=== PATIENT | female | born 1965 | race Caucasian/White ===

== ENCOUNTER 2016-03-06 17:40 | Emergency (ER) | payer MEDICAID, OTHER ==
[2016-03-06 17:58] VITALS: BP 157/94
--- NOTE | 2016-03-06 18:26 | UC ---
Respiratory Complaint HPI - HPI Summary HPI Summary: Patient is 50yo female with a history of asthma presents after 4-5 days of cough with yellow sputum. Patient states her father in the [place] is currently being treated for PNA and she has visited there multiple times during the course of his illness. She was also treated in the ICU last year for asthma exacerbation associated associated with a URI. Patient also has a nodule on her L lung which has been present and stable for approximately [address] scan 2 years prior and is currently unaware if size has changed. Patient is on albuterol and symbicort, both of which she feels she has needed more of over the last few days. Denies SOB but states she is more fatigued than usual. Patient also has had a "stomach bug" with nausea/vomiting , JUAN, body aches and chills 2 days prior to cough and congestion. This has since dissipated and denies any current abdominal symptoms. Patient is allergic to penicillins. Visits her PCP regularly and has appt this week. - History of Current Complaint Chief Complaint: UCGeneralIllness Stated Complaint: COUGH,FATIGUE Hx Obtained From: Patient Hx Last Menstrual Period: Never had a period ?: No Onset/Duration: Sudden Onset Timing: Constant Severity Initially: Moderate Severity Currently: Moderate Pain Intensity: 1 Pain Scale Used: 0-10 Numeric Character: Cough: Productive - yellow sputum Alleviating Factors: Bronchodilator - and symbicort Associated Signs And Symptoms: Positive: Fever - none currently, Chills - none currently, Wheezing, URI, Nasal Congestion - Risk Factors Pulmonary Embolism Risk Factors: Smoking - previous Cardiac Risk Factors: Family History Pseudomonas Risk Factors: Chronic Lung Disease - asthma Tuberculosis Risk Factors: Smoking - previous - Allergies/Home Medications Allergies/Adverse Reactions: Allergies Allergy/AdvReac Type Severity Reaction Status Date / Time Aspirin Allergy See Comment Verified 07/22/14 07:52 Penicillins Allergy Shortness Verified 07/22/14 07:52 of Breath Home Medications: Home Medications Mometasone NASAL (NF) [Nasonex (NF)] 03/06/16 [History] Tylenol Extended Release Tablets 650 mg PO 03/06/16 [History] PMH/Surg Hx/FS Hx/Imm Hx Previously Healthy: Yes Endocrine History Of: Denies: Diabetes, Thyroid Disease Cardiovascular History Of: Reports: Hypertension - not on meds right now Denies: Cardiac Disorders Respiratory History Of: Reports: Asthma, Bronchitis - PNEUMONIA A COUPLE TIMES, Pneumonia Denies: COPD GI/ History Of: Denies: Ulcer, Renal Disease - Surgical History Surgical History: Yes Surgery Procedure, Year, and Place: hysterectomy - Family History Known Family History: Positive: Cardiac Disease Family History: COPD - Social History Occupation: Employed Full-time Lives: Alone Alcohol Use: Rare Substance Use Type: None Smoking Status (MU): Former Smoker Type: Cigarettes Amount Used/How Often: 2 PPD Length of Time of Smoking/Using Tobacco: 8-10 years Have You Smoked in the Last Year: No When Did the Patient Quit Smoking/Using Tobacco: 20 years ago Household Exposure Type: Cigarettes - Immunization History Most Recent Influenza Vaccination: season Most Recent Tetanus Shot: unk Most Recent Pneumonia Vaccination: this year Review of Systems Constitutional: Fever, Chills, Fatigue Skin: Negative ENT: Negative Respiratory: Cough - with sputum production Cardiovascular: Negative Gastrointestinal: Negative, Vomiting - 2 days ago Motor: Negative Musculoskeletal: Negative Neurological: Negative All Other Systems Reviewed And Are Negative: Yes Physical Exam Triage Information Reviewed: Yes Appearance: Well-Appearing, No Pain Distress, Well-Nourished Vital Signs: Initial Vital Signs Temp 99 F 03/06/16 17:47 Pulse 73 03/06/16 17:47 Resp 18 03/06/16 17:47 BP 157/94 03/06/16 17:47 Pulse Ox 99 03/06/16 17:47 Vital Signs Reviewed: Yes Eye Exam: Normal Eyes: Positive: Conjunctiva Clear ENT Exam: Normal ENT: Positive: Normal ENT inspection, Hearing grossly normal, Pharynx normal Dental Exam: Normal Neck exam: Normal Neck: Positive: Supple, Nontender Respiratory Exam: Normal Respiratory: Positive: No respiratory distress, No accessory muscle use, Rhonchi - right lower lung, Expiration Cardiovascular Exam: Normal Cardiovascular: Positive: RRR, No Murmur, Pulses Normal Musculoskeletal Exam: Normal Musculoskeletal: Positive: Strength Intact, ROM Intact Neurological Exam: Normal Psychological Exam: Normal Psychological: Positive: Normal Response To Family Skin Exam: Normal UC Diagnostic Evaluation - Laboratory O2 Sat by Pulse Oximetry: 99 - Radiology Xray Interpretation: No Acute Changes Radiology Interpretation Completed By: Radiologist Re-Evaluation - Re-Evaluation First Eval Change: Unchanged - D/t patients symptoms of GI - flu swab performed Respiratory Course/Dx - Course Course Of Treatment: Physical exam performed. History includes ICU stay last year, sick contact around current patient being treated for PNA, asthma exacerbation, PNA or bronchitis on average once per year and stable lung nodule on L lung. Chest xray ordered d/t significant lung history and risk factors. Chest Xray read as no acute disease. Per risk factors and history, after discussing with attending, decided to treat with prednisone, zpack and albuterol nebulizer. First dose treatment given in . Flu swab negative. - Differential Dx/Diagnosis Differential Diagnosis/HQI/PQRI: Asthma, Bronchitis, Other - PNA Provider Diagnoses: URI - Physician Notification/Consults Instructed by Provider To: Have Pt Call For Appt. - follow up with your PCP as planned this week Discharge - Discharge Plan Condition: Stable Disposition: HOME Prescriptions: Albuterol 2.5MG/3ML (0.083%)* [Ventolin 2.5 MG/3 ML NEB.VERENA*] 2.5 mg INH Q4H PRN #30 neb.verena PRN Reason: Cough Azithromyxin MAURY (NF) [Z-Maury (Zithromax) 250 mg tabs #6] 2 tab PO .TODAY, THEN 1 DAILY #6 tab predniSONE TAB* [Deltasone TAB*] 10 mg PO DAILY #17 tab Patient Education Materials: Upper Respiratory Infection (GEN), Azithromycin ( By mouth) Referrals: Queta Dasilva MD [Primary Care Provider] - Additional Instructions: If you develop severe or worsening symptoms, come back to or go to emergency room. You have been diagnosed with an upper respiratory infection. As discussed, d/t your current risk factors, ICU stay and sick family contacts - will treat empirically with antibiotics. Also prescribed to you is prednisone and albuterol nebulizer. Return if fever develops.
--- NOTE | 2016-03-06 19:01 | RAD ---
INDICATION: Pneumonia COMPARISON: 03/09/2015 TECHNIQUE: PA and lateral dual-energy views were obtained. FINDINGS: Bones/Soft Tissues: There are no acute bony findings. Cardiomediastinal: The cardiomediastinal silhouette is normal. Lungs: There are no infiltrates. Pleura: There are no pleural effusions. Other: None IMPRESSION: NO ACTIVE DISEASE.
[2016-03-06] MEDS ORDERED: Azithromycin TAB* 250 MG PO ONE (19:30)
== END 2016-03-06 19:45 | disposition home or self-care (01) ==
LOC: UCEAST 17:40
DX: J06.9 Acute upper respiratory infection, unspecified (principal); Z88.6 Allergy status to analgesic agent; Z88.0 Allergy status to penicillin; Z87.891 Personal history of nicotine dependence
CPT/HCPCS: 71020; 87502; 99212; A9270-GY; G0463

== ENCOUNTER 2016-07-05 21:14 | Emergency (ER) | payer OTHER ==
[2016-07-05 21:34] VITALS: BP 144/96
[2016-07-05] MEDS ORDERED: predniSONE TAB* 20 MG PO ONE (22:18)
[2016-07-05] MEDS ORDERED: Azithromycin TAB* 250 MG PO ONE (22:18)
--- NOTE | 2016-07-05 22:18 | UC ---
Respiratory Complaint HPI - HPI Summary HPI Summary: WORSENING COUGH, CONGESTION, ST AND EAR PAIN OVER THE PAST WEEK. FEELS WHEEZY AND TIGHT. HAS HISTORY OF ASTHMA. NO FEVER BUT FELT "HOT" ON THE WAY HERE. - History of Current Complaint Chief Complaint: UCRespiratory Stated Complaint: CHEST CONGESTION Time Seen by Provider: 07/05/16 22:01 Hx Obtained From: Patient Hx Last Menstrual Period: Never had a period Onset/Duration: Gradual Onset, Lasting Days, Still Present Timing: Constant Severity Initially: Moderate Severity Currently: Moderate Pain Intensity: 0 Pain Scale Used: 0-10 Numeric Character: Cough: Nonproductive Aggravating Factors: Nothing Alleviating Factors: Nothing Associated Signs And Symptoms: Positive: Wheezing, URI, Nasal Congestion - Allergies/Home Medications Allergies/Adverse Reactions: Allergies Allergy/AdvReac Type Severity Reaction Status Date / Time Aspirin Allergy See Comment Verified 07/05/16 21:34 Penicillins Allergy Shortness Verified 07/05/16 21:34 of Breath Home Medications: Home Medications Albuterol Sulfate [Proventil Hfa] 2 puff INH QID PRN 07/05/16 [History Confirmed 07/05/16] PMH/Surg Hx/FS Hx/Imm Hx Endocrine History Of: Denies: Diabetes, Thyroid Disease Cardiovascular History Of: Reports: Hypertension - not on meds right now Denies: Cardiac Disorders Respiratory History Of: Reports: Asthma, Bronchitis - PNEUMONIA A COUPLE TIMES, Pneumonia Denies: COPD GI/ History Of: Denies: Ulcer, Renal Disease Cancer History Of: Denies: Breast Cancer - Surgical History Surgical History: Yes Surgery Procedure, Year, and Place: hysterectomy - Family History Known Family History: Positive: Cardiac Disease Family History: COPD - Social History Alcohol Use: None Substance Use Type: None Smoking Status (MU): Former Smoker Type: Cigarettes Amount Used/How Often: 2 PPD Length of Time of Smoking/Using Tobacco: 8-10 years Have You Smoked in the Last Year: No When Did the Patient Quit Smoking/Using Tobacco: 20 years ago Household Exposure Type: Cigarettes - Immunization History Most Recent Influenza Vaccination: 2014/2015 season Most Recent Tetanus Shot: unk Most Recent Pneumonia Vaccination: this year Review of Systems Constitutional: Negative ENT: Sore Throat, Ear Ache, Nasal Discharge Respiratory: Cough Cardiovascular: Negative Gastrointestinal: Negative All Other Systems Reviewed And Are Negative: Yes Physical Exam Triage Information Reviewed: Yes Appearance: Well-Appearing, No Pain Distress, Well-Nourished Vital Signs: Initial Vital Signs Temp 98.1 F 07/05/16 21:31 Pulse 74 07/05/16 21:31 Resp 16 07/05/16 21:31 BP 144/96 07/05/16 21:31 Pulse Ox 97 07/05/16 21:31 Vital Signs Reviewed: Yes Eyes: Positive: Conjunctiva Clear ENT: Positive: Hearing grossly normal, Pharynx normal, TMs normal. Negative: Tonsillar swelling, Tonsillar exudate Neck: Positive: Supple, Nontender, No Lymphadenopathy Respiratory: Positive: No respiratory distress, No accessory muscle use, Decreased breath sounds, Wheezing - DIFFUSELY Cardiovascular Exam: Normal Abdomen Description: Positive: Soft Musculoskeletal: Positive: No Edema Neurological: Positive: Alert Psychological: Positive: Age Appropriate Behavior Skin: Negative: rashes UC Diagnostic Evaluation - Laboratory O2 Sat by Pulse Oximetry: 97 Respiratory Course/Dx - Differential Dx/Diagnosis Provider Diagnoses: 1. ASTHMA EXACERBATION. 2. BRONCHITIS Discharge - Discharge Plan Condition: Stable Disposition: HOME Prescriptions: Azithromycin TAB* [Zithromax TAB (Z-ANNIE) 250 mg #6 tabs] 250 mg PO DAILY #4 tab predniSONE TAB* [Deltasone TAB*] 50 mg PO DAILY #4 tab Patient Education Materials: Asthma (ED), Acute Bronchitis (ED) Referrals: Queta Dasilva MD [Primary Care Provider] - If Needed Additional Instructions: CONTINUE TO USE YOUR INHALERS PRESCRIBED.
== END 2016-07-05 22:32 | disposition home or self-care (01) ==
LOC: UCEAST 21:14
DX: J45.901 Unspecified asthma with (acute) exacerbation (principal); I10 Essential (primary) hypertension; Z90.710 Acquired absence of both cervix and uterus; Z88.6 Allergy status to analgesic agent; Z88.0 Allergy status to penicillin; Z87.891 Personal history of nicotine dependence
CPT/HCPCS: 99212; A9270-GY; G0463; J7512

== ENCOUNTER 2016-11-20 23:55 | Emergency (ER) | payer OTHER ==
[2016-11-21] MEDS ORDERED: methylPREDNISolone 125 MG* 2 ML VIAL IV ONE (00:30)
[2016-11-21] MEDS ORDERED: NS 0.9% 1000 ML* 1,000 ML IV ONE (00:30)
[2016-11-21 00:56] LABS: Hematocrit 43 % (35-47); Hemoglobin 14.5 g/dl (12.0-16.0); Mean Corpuscular HGB Conc 34 g/dl (31-36); Mean Corpuscular Hemoglobin 30 pg (27-31); Mean Corpuscular Volume 89 fL (80-97); Mean Platelet Volume 10 um3 (7.4-10.4); Red Blood Count 4.78 10^6/ul (4.0-5.4); Red Cell Distribution Width 13 % (10.5-15); White Blood Count 7.9 10^3/ul (3.5-10.8)
[2016-11-21] MEDS: Albuterol/Ipratropium NEB.SOL* Albuterol 2.5 MG/Ipratropium 0.5 MG 3 ML INH SCH ×3 (00:59→01:24)
[2016-11-21 01:11] LABS: Albumin 4.1 g/dL (3.2-5.2); BUN/Creatinine Ratio 19.8 (8-20); C Reactive Protein 13.85 mg/L (< 5.00); Calcium 9.5 mg/dL (8.6-10.3); EGFR African American 70.6 (>60); EGFR Non-African American 54.9 (>60); Potassium 3.9 mmol/L (3.5-5.0); Total Bilirubin 0.3 mg/dL (0.2-1.0); Total Protein 7.1 g/dL (6.4-8.9)
[2016-11-21 02:25] LABS: Urine Bilirubin Negative (Negative); Urine Glucose 1+(50 mg/dL) (Negative); Urine Nitrite Negative (Negative)
[2016-11-21 02:42] VITALS: BP 156/80
--- NOTE | 2016-11-21 07:58 | RAD ---
HISTORY: Shortness of breath COMPARISONS: March 06, 2016 VIEWS: 4: Frontal dual-energy and lateral views of the chest. FINDINGS: CARDIOMEDIASTINAL SILHOUETTE: The cardiomediastinal silhouette is normal. DAVID: The david are normal. PLEURA: The costophrenic angles are sharp. No pleural abnormalities are noted. LUNG PARENCHYMA: The lungs are clear. ABDOMEN: The upper abdomen is clear. There is no subphrenic gas. BONES AND SOFT TISSUES: No bone or soft tissue abnormalities are noted. OTHER: None. IMPRESSION: NO ACTIVE CARDIOPULMONARY DISEASE.
--- NOTE | 2016-11-22 12:40 | ED ---
Berta Prince Alfonso, scribed for Calvin Solis MD on 11/21/16 at 0104 . Shortness of Breath - HPI Summary HPI Summary: This patient is a 51 year old F presenting to [facility] accompanied by with a chief complaint of SOB since 2 hours ago. She states it is an asthma attack. The patient rates the pain 0/10 in severity. Symptoms alleviated by nothing. Patient reports productive cough, CP (burning), and wheezing. Patient denies fever, and chills. - History of Current Complaint Chief Complaint: EDShortnessOfBreath Time Seen by Provider: 11/21/16 00:16 Hx Obtained From: Patient Onset/Duration: Sudden Onset, Lasting Hours - 2, Still Present Timing: Constant Alleviating Factors: Nothing Associated Signs & Symptoms: Cough (Productive), Wheezing, Chest Pain w/Cough - Allergy/Home Medications Allergies/Adverse Reactions: Allergies Allergy/AdvReac Type Severity Reaction Status Date / Time Aspirin Allergy See Comment Verified 11/21/16 00:02 Penicillins Allergy Shortness Verified 11/21/16 00:02 of Breath PMH/Surg Hx/FS Hx/Imm Hx Endocrine/Hematology History: Denies: Hx Diabetes, Hx Systemic Lupus Erythematosus, Hx Thyroid Disease Cardiovascular History: Reports: Hx Hypertension - not on meds right now Respiratory History: Reports: Hx Asthma, Hx Chronic Bronchitis, Hx Pneumonia, Other Respiratory Problems/Disorders - NODULE ON L.LUNG Denies: Hx Chronic Obstructive Pulmonary Disease (COPD) GI History: Denies: Hx Ulcer History: Denies: Hx Renal Disease Musculoskeletal History: Denies: Hx Rheumatoid Arthritis - Surgical History Surgery Procedure, Year, and Place: hysterectomy Infectious Disease History: No Infectious Disease History: Denies: Hx Clostridium Difficile, Hx Hepatitis, Hx Human Immunodeficiency Virus (HIV), Hx of Known/Suspected MRSA, Hx Shingles, Hx Tuberculosis, History Other Infectious Disease, Traveled Outside the [place] in Last 30 Days - Family History Known Family History: Positive: Cardiac Disease Family History: COPD - Social History Alcohol Use: None Substance Use Type: Reports: None Smoking Status (MU): Former Smoker Type: Cigarettes Amount Used/How Often: 2 PPD Length of Time of Smoking/Using Tobacco: 8-10 years Have You Smoked in the Last Year: No Review of Systems Negative: Fever, Chills Positive: Chest Pain - burning Positive: Shortness Of Breath, Cough, Other - Wheezing All Other Systems Reviewed And Are Negative: Yes Physical Exam - Summary Physical Exam Summary: VITAL SIGNS: Reviewed. GENERAL: Patient is a well-developed and nourished female who is lying comfortable in the stretcher. Patient is not in any acute respiratory distress. HEAD AND FACE: No signs of trauma. No ecchymosis, hematomas or skull depressions. No sinus tenderness. EYES: PERRLA, EOMI x 2, No injected conjunctiva, no nystagmus. EARS: Hearing grossly intact. Ear canals and tympanic membranes are within normal limits. MOUTH: Oropharynx within normal limits. NECK: Supple, trachea is midline, no adenopathy, no JVD, no carotid bruit, no c- spine tenderness, neck with full ROM. CHEST: Symmetric, no tenderness at palpation LUNGS: Bilateral wheezing and decreased breath sounds bilaterally. CVS: Regular rate and rhythm, S1 and S2 present, no murmurs or gallops appreciated. ABDOMEN: Soft, non-tender. No signs of distention. No rebound no guarding, and no masses palpated. Bowel sounds are normal. EXTREMITIES: FROM in all major joints, no edema, no cyanosis or clubbing. NEURO: Alert and oriented x 3. No acute neurological deficits. Speech is normal and follows commands. SKIN: Dry and warm Triage Information Reviewed: Yes Vital Signs On Initial Exam: Initial Vitals Temp Pulse Resp BP Pulse Ox 97.4 F 90 20 166/89 97 11/20/16 23:59 11/20/16 23:59 11/20/16 23:59 11/20/16 23:59 11/20/16 23:59 Vital Signs Reviewed: Yes - [place] Coma Scale Coma Scale Total: 15 Diagnostics - Vital Signs Vital Signs Temp Pulse Resp BP Pulse Ox 11/20/16 23:59 97.4 F 90 20 166/89 97 - Laboratory Lab Results: Lab Results 11/21/16 Range/Units 00:45 WBC 7.9 (3.5-10.8) 10^3/ul RBC 4.78 (4.0-5.4) 10^6/ul Hgb 14.5 (12.0-16.0) g/dl Hct 43 (35-47) % MCV 89 (80-97) fL MCH 30 (27-31) pg MCHC 34 (31-36) g/dl RDW 13 (10.5-15) % Plt Count 224 (150-450) 10^3/ul MPV 10 (7.4-10.4) um3 Neut % (Auto) 70.5 (38-83) % Lymph % (Auto) 18.7 L (25-47) % Traverse % (Auto) 6.0 (1-9) % Eos % (Auto) 4.1 (0-6) % Baso % (Auto) 0.7 (0-2) % Absolute Neuts (auto) 5.6 (1.5-7.7) 10^3/ul Absolute Lymphs (auto) 1.5 (1.0-4.8) 10^3/ul Absolute Monos (auto) 0.5 (0-0.8) 10^3/ul Absolute Eos (auto) 0.3 (0-0.6) 10^3/ul Absolute Basos (auto) 0.1 (0-0.2) 10^3/ul Absolute Nucleated RBC 0 10^3/ul Nucleated RBC % 0.1 Result Diagrams: 11/21/16 00:45 11/21/16 00:45 Lab Statement: Any lab studies that have been ordered have been reviewed, and results considered in the medical decision making process. - Radiology CXR Radiology Interpretation Completed By: ED Physician - negative - EKG 0034 Cardiac Rate: NL - BPM 78 EKG Rhythm: Sinus Rhythm EKG Interpretation: RBBB. No ST elevation. Course/Dx - Course Assessment/Plan: This patient is a 51 year old F presenting to [facility] accompanied by with a chief complaint of SOB since 2 hours ago. She states it is an asthma attack. The patient rates the pain 0/10 in severity. Symptoms alleviated by nothing. Patient reports productive cough, CP (burning), and wheezing. Patient denies fever, and chills. An EKG reveals NSR and RBBB. CXR is negative. Test results with no significant abnormalities except for glucose of 116 and creatinine of 1.06. Urinalysis is negative. In the ED course the patient was given IV fluids, duonebs, and solumedrol. After the medications were given, the patients symptoms have subsided. The patient is saturating at 98% at room air. Therefore, the patient will be discharge to home with PCP follow up. The patient is agreeable with this plan. The patient is hemodynamically stable and alert and oriented x3. - Diagnoses Provider Diagnoses: Asthma exacerbation Discharge - Discharge Plan Condition: Stable Disposition: HOME Prescriptions: predniSONE TAB* [Deltasone TAB*] 40 mg PO DAILY #8 tab Patient Education Materials: Asthma (ED) Referrals: Queta Dasilva MD [Primary Care Provider] - 3 Days Additional Instructions: RETURN TO THE EMERGENCY DEPARTMENT FOR CHANGING OR WORSENING SYMPTOMS. The documentation as recorded by the Berta verdin Alfonso accurately reflects the service I personally performed and the decisions made by Will ryan Walter, MD.
== END 2016-11-21 02:41 | disposition home or self-care (01) ==
LOC: ED 23:55
DX: R05 Cough (principal); R07.9 Chest pain, unspecified; R06.2 Wheezing; R06.02 Shortness of breath; Z87.891 Personal history of nicotine dependence; J45.901 Unspecified asthma with (acute) exacerbation
CPT/HCPCS: 36415; 71020; 80053; 81003; 83605; 85025; 86140; 93005; 96374; 99284; A9270-GY; J2930

== ENCOUNTER 2017-01-17 15:10 | Emergency (ER) | payer OTHER ==
[2017-01-17] MEDS ORDERED: Albuterol/Ipratropium NEB.SOL* Albuterol 2.5 MG/Ipratropium 0.5 MG 3 ML INH ONE ×2 (18:53→19:39)
[2017-01-17] MEDS ORDERED: Albuterol/Ipratropium NEB.SOL* Albuterol 2.5 MG/Ipratropium 0.5 MG 3 ML ONE (18:54)
[2017-01-17] MEDS ORDERED: methylPREDNISolone 125 MG* 2 ML VIAL IV ONE (19:39)
--- NOTE | 2017-01-17 20:10 | RAD ---
INDICATION: Short of breath COMPARISON: November 21, 2016 TECHNIQUE: An AP portable view obtained at 1956 hours is submitted. FINDINGS: Bones/Soft Tissues: There are no acute bony findings. Cardiomediastinal: The cardiomediastinal silhouette is normal. Lungs: There are no infiltrates. Pleura: There are no pleural effusions. Other: None IMPRESSION: NO ACTIVE DISEASE.
[2017-01-17 20:38] LABS: Hematocrit 43 % (35-47); Hemoglobin 14.4 g/dl (12.0-16.0); Mean Corpuscular HGB Conc 34 g/dl (31-36); Mean Corpuscular Hemoglobin 30 pg (27-31); Mean Corpuscular Volume 89 fL (80-97); Mean Platelet Volume 10 um3 (7.4-10.4); Red Cell Distribution Width 13 % (10.5-15); White Blood Count 13.3 10^3/ul (3.5-10.8)
[2017-01-17 20:51] LABS: Albumin 4.3 g/dL (3.2-5.2); BUN/Creatinine Ratio 12.9 (8-20); Calcium 9.4 mg/dL (8.6-10.3); EGFR Non-African American 70.8 (>60); Potassium 3.4 mmol/L (3.5-5.0); Total Bilirubin 0.4 mg/dL (0.2-1.0); Total Protein 7.3 g/dL (6.4-8.9)
[2017-01-17] MEDS ORDERED: Azithromycin TAB* 250 MG PO ONE (21:06)
[2017-01-17 21:29] VITALS: BP 150/86
--- NOTE | 2017-01-17 21:32 | ED ---
Татьяна Prince Gabriel, scribed for Aleksandr Machado on 01/17/17 at 1934 . Respiratory - HPI Summary HPI Summary: This patient is a 51 year old F presenting to [facility] with a chief complaint of asthma exacerbation since earlier today. Patient reports nonproductive cough. Patient denies fever, abd pain, and edema. Pt states she had a head cold for the last 5 days that has recently moved into her chest causing asthma flare-ups , she also says her nebulizer at home isnt helping. - History of Current Complaint Chief Complaint: EDShortnessOfBreath Stated Complaint: CHEST CONGESTION,SOB Time Seen by Provider: 01/17/17 19:19 Hx Obtained From: Patient Onset/Duration: Still Present Timing: Constant Pain Intensity: 0 Character: Wheezing, Cough (Nonproductive) Alleviating Factor(s): Nothing Associated Signs and Symptoms: Negative - fever, abd pain, and edema, Wheezing - Allergy/Home Medications Allergies/Adverse Reactions: Allergies Allergy/AdvReac Type Severity Reaction Status Date / Time Aspirin Allergy See Comment Verified 11/21/16 00:02 Penicillins Allergy Shortness Verified 11/21/16 00:02 of Breath PMH/Surg Hx/FS Hx/Imm Hx Previously Healthy: No Endocrine/Hematology History: Denies: Hx Diabetes, Hx Systemic Lupus Erythematosus, Hx Thyroid Disease Cardiovascular History: Reports: Hx Hypertension - not on meds right now Respiratory History: Reports: Hx Asthma, Hx Chronic Bronchitis, Hx Pneumonia, Other Respiratory Problems/Disorders - NODULE ON L.LUNG Denies: Hx Chronic Obstructive Pulmonary Disease (COPD) GI History: Denies: Hx Ulcer History: Denies: Hx Renal Disease Musculoskeletal History: Denies: Hx Rheumatoid Arthritis - Surgical History Surgery Procedure, Year, and Place: hysterectomy Infectious Disease History: No Infectious Disease History: Denies: Hx Clostridium Difficile, Hx Hepatitis, Hx Human Immunodeficiency Virus (HIV), Hx of Known/Suspected MRSA, Hx Shingles, Hx Tuberculosis, History Other Infectious Disease, Traveled Outside the [place] in Last 30 Days - Family History Known Family History: Positive: Cardiac Disease Family History: COPD - Social History Alcohol Use: None Hx Substance Use: No Substance Use Type: Reports: None Hx Tobacco Use: No Smoking Status (MU): Former Smoker Type: Cigarettes Amount Used/How Often: 2 PPD Length of Time of Smoking/Using Tobacco: 8-10 years Have You Smoked in the Last Year: No Review of Systems Negative: Fever Respiratory: Other - asthma exacerbation Positive: Cough Negative: Abdominal Pain Negative: Edema All Other Systems Reviewed And Are Negative: Yes Physical Exam - Summary Physical Exam Summary: Appearance: Well appearing, no pain distress Skin: warm, dry, reflects adequate perfusion Head/face: normal Eyes: EOMI, NASIMA ENT: normal Neck: supple, non-tender Respiratory: bilateral wheezing present. Cardiovascular: RRR, pulses symmetrical Abdomen: non-tender, soft Bowel: present Musculoskeletal: normal, strength/ROM intact Neuro: normal, sensory motor intact, A&Ox3 Triage Information Reviewed: Yes Vital Signs On Initial Exam: Initial Vitals Temp Pulse Resp BP Pulse Ox 97.4 F 111 16 163/95 95 01/17/17 15:17 01/17/17 15:17 01/17/17 15:17 01/17/17 15:17 01/17/17 15:17 Vital Signs Reviewed: Yes - [place] Coma Scale Coma Scale Total: 15 Diagnostics - Vital Signs Vital Signs Temp Pulse Resp BP Pulse Ox 01/17/17 15:17 97.4 F 111 16 163/95 95 - Laboratory Lab Results: Lab Results 01/17/17 01/17/17 01/17/17 Range/Units 20:06 20:06 20:06 WBC 13.3 H (3.5-10.8) 10^3/ul RBC 4.80 (4.0-5.4) 10^6/ul Hgb 14.4 (12.0-16.0) g/dl Hct 43 (35-47) % MCV 89 (80-97) fL MCH 30 (27-31) pg MCHC 34 (31-36) g/dl RDW 13 (10.5-15) % Plt Count 289 (150-450) 10^3/ul MPV 10 (7.4-10.4) um3 Neut % (Auto) 75.8 (38-83) % Lymph % (Auto) 17.1 L (25-47) % Parker % (Auto) 5.8 (1-9) % Eos % (Auto) 0.8 (0-6) % Baso % (Auto) 0.5 (0-2) % Absolute Neuts (auto) 10.1 H (1.5-7.7) 10^3/ul Absolute Lymphs (auto) 2.3 (1.0-4.8) 10^3/ul Absolute Monos (auto) 0.8 (0-0.8) 10^3/ul Absolute Eos (auto) 0.1 (0-0.6) 10^3/ul Absolute Basos (auto) 0.1 (0-0.2) 10^3/ul Absolute Nucleated RBC 0.01 10^3/ul Nucleated RBC % 0.1 INR (Anticoag Therapy) 0.98 (0.89-1.11) APTT 28.2 (26.0-36.3) seconds Sodium (133-145) mmol/L Potassium (3.5-5.0) mmol/L Chloride (101-111) mmol/L Carbon Dioxide (22-32) mmol/L Anion Gap (2-11) mmol/L BUN (6-24) mg/dL Creatinine (0.51-0.95) mg/dL Est GFR ( Amer) (>60) Est GFR (Non-Af Amer) (>60) BUN/Creatinine Ratio (8-20) Glucose (70-100) mg/dL Lactic Acid (0.5-2.0) mmol/L Calcium (8.6-10.3) mg/dL Magnesium (1.9-2.7) mg/dL Total Bilirubin (0.2-1.0) mg/dL AST (13-39) U/L ALT (7-52) U/L Alkaline Phosphatase (34-104) U/L Troponin I (<0.04) ng/mL B-Natriuretic Peptide 36 ( - 100) pg/mL Total Protein (6.4-8.9) g/dL Albumin (3.2-5.2) g/dL Globulin (2-4) g/dL Albumin/Globulin Ratio (1-3) 01/17/17 01/17/17 Range/Units 20:06 20:06 WBC (3.5-10.8) 10^3/ul RBC (4.0-5.4) 10^6/ul Hgb (12.0-16.0) g/dl Hct (35-47) % MCV (80-97) fL MCH (27-31) pg MCHC (31-36) g/dl RDW (10.5-15) % Plt Count (150-450) 10^3/ul MPV (7.4-10.4) um3 Neut % (Auto) (38-83) % Lymph % (Auto) (25-47) % Parker % (Auto) (1-9) % Eos % (Auto) (0-6) % Baso % (Auto) (0-2) % Absolute Neuts (auto) (1.5-7.7) 10^3/ul Absolute Lymphs (auto) (1.0-4.8) 10^3/ul Absolute Monos (auto) (0-0.8) 10^3/ul Absolute Eos (auto) (0-0.6) 10^3/ul Absolute Basos (auto) (0-0.2) 10^3/ul Absolute Nucleated RBC 10^3/ul Nucleated RBC % INR (Anticoag Therapy) (0.89-1.11) APTT (26.0-36.3) seconds Sodium 138 (133-145) mmol/L Potassium 3.4 L (3.5-5.0) mmol/L Chloride 105 (101-111) mmol/L Carbon Dioxide 24 (22-32) mmol/L Anion Gap 9 (2-11) mmol/L BUN 11 (6-24) mg/dL Creatinine 0.85 (0.51-0.95) mg/dL Est GFR ( Amer) 91.0 (>60) Est GFR (Non-Af Amer) 70.8 (>60) BUN/Creatinine Ratio 12.9 (8-20) Glucose 96 (70-100) mg/dL Lactic Acid 2.2 H* (0.5-2.0) mmol/L Calcium 9.4 (8.6-10.3) mg/dL Magnesium 2.0 (1.9-2.7) mg/dL Total Bilirubin 0.40 (0.2-1.0) mg/dL AST 26 (13-39) U/L ALT 52 (7-52) U/L Alkaline Phosphatase 62 (34-104) U/L Troponin I 0.00 (<0.04) ng/mL B-Natriuretic Peptide ( - 100) pg/mL Total Protein 7.3 (6.4-8.9) g/dL Albumin 4.3 (3.2-5.2) g/dL Globulin 3.0 (2-4) g/dL Albumin/Globulin Ratio 1.4 (1-3) Result Diagrams: 01/17/17 20:06 01/17/17 20:06 Lab Statement: Any lab studies that have been ordered have been reviewed, and results considered in the medical decision making process. - Radiology CXR Radiology Interpretation Completed By: Radiologist - NO ACTIVE DISEASE. ED physician has reviewed this radiology report and agrees Disposition - Course Assessment/Plan: This patient came in with SOB. Blood was drawn with no significant abnormalities. CXR reveals, per radiologist, NO ACTIVE DISEASE. In the ED course the patient was given Albuterol breathing treatment and Azithromycin and is feeling better. Patient will be discharged with prescription for Albuterol and Methylprednisolone and follow up from Dr. Dasilva. The patient is agreeable with this plan. - Differential Dx - Cardiopulmonary Differential Diagnoses - Cardiopulmonary: Acute Dyspnea, Asthma, Bronchitis, CHF , Exacerbation Of COPD, Myocardial Infarction, Pneumothorax - Diagnoses Provider Diagnoses: Exacerbation of asthma, Bronchitis Discharge - Discharge Plan Condition: Stable Disposition: HOME Prescriptions: Albuterol HFA INHALER* [Ventolin HFA Inhaler*] 2 puff INH Q6H PRN #1 mdi MDD 4 PRN Reason: Sob/Wheezing Methylprednisolone [Medrol Dosepak 4 MG*] 0 mg PO .SEE ANNIE INSTRUCTION #1 tab Patient Education Materials: Albuterol (By breathing), Methylprednisolone (By mouth), Bronchiolitis (ED), Asthma (ED) Referrals: Queta Dasilva MD [Primary Care Provider] - 3 Days Additional Instructions: RETURN TO THE EMERGENCY DEPARTMENT FOR CHANGING OR WORSENING SYMPTOMS. The documentation as recorded by the Татьяна verdin Gabriel accurately reflects the service I personally performed and the decisions made by Carter ryan Emmanuel.
== END 2017-01-17 21:28 | disposition home or self-care (01) ==
LOC: ED 15:10
DX: J45.901 Unspecified asthma with (acute) exacerbation (principal); R00.0 Tachycardia, unspecified; I10 Essential (primary) hypertension; Z90.710 Acquired absence of both cervix and uterus; Z88.6 Allergy status to analgesic agent; Z88.0 Allergy status to penicillin; Z87.891 Personal history of nicotine dependence
CPT/HCPCS: 36415; 71010; 80053; 83605; 83735; 83880; 84484; 85025; 85610; 85730; 93005; 94640; 96374; 99285; A9270-GY; J2930

== ENCOUNTER 2017-06-07 14:20 | Emergency (ER) | payer OTHER ==
[2017-06-07 14:37] VITALS: BP 138/89
--- NOTE | 2017-06-07 14:58 | UC ---
Respiratory Complaint HPI - HPI Summary HPI Summary: 52 y/o female presents to the urgent care c/o Pt c/o SOB and chest congestion, states R sided that started this morning. Pt states hx asthma, worried about bronchitis. - History of Current Complaint Chief Complaint: UCGeneralIllness Stated Complaint: CHEST CONGESTION Time Seen by Provider: 06/07/17 14:51 Hx Obtained From: Patient Hx Last Menstrual Period: Never had a period Pain Intensity: 1 - Allergies/Home Medications Allergies/Adverse Reactions: Allergies Allergy/AdvReac Type Severity Reaction Status Date / Time aspirin Allergy Shortness Verified 06/07/17 14:27 of Breath Penicillins Allergy Shortness Verified 06/07/17 14:27 of Breath PMH/Surg Hx/FS Hx/Imm Hx - Surgical History Surgical History: Yes Surgery Procedure, Year, and Place: hysterectomy - Family History Known Family History: Positive: Cardiac Disease Family History: COPD - Social History Alcohol Use: None Substance Use Type: None Smoking Status (MU): Former Smoker Type: Cigarettes Amount Used/How Often: 2 PPD Length of Time of Smoking/Using Tobacco: 8-10 years Have You Smoked in the Last Year: No When Did the Patient Quit Smoking/Using Tobacco: 20 years ago Household Exposure Type: Cigarettes - Immunization History Most Recent Influenza Vaccination: 2014/2015 season Most Recent Tetanus Shot: unk Most Recent Pneumonia Vaccination: this year Physical Exam - Summary Physical Exam Summary: Vital Signs Reviewed: Yes General: well developed, well nourished male sitting in the examining table w/o any apparent distress Eyes: Positive: Conjunctiva Clear - PERRLA, EOMI, fundi grossly normal ENT: Positive: Normal ENT inspection, Hearing grossly normal, Pharynx normal, Nasal congestion - edematous and erythematous nasal mucosa, Nasal drainage - yellowish drainage, TMs normal. Negative: Tonsillar swelling, Tonsillar exudate Neck: Positive: Supple, Nontender, No Lymphadenopathy Respiratory: no orthopnea or dyspnea. Able to speak in full sentences, no retractions or accessory muscle use, no tripod position, stridor, or head bobbing.Positive breaths souds bilaterally, mild scattered wheezing in the Rt upper posterior lung , no rhonchi, no crackles or rales. Cardiovascular: Positive: RRR, No Murmur, Pulses Normal, Brisk Capillary Refill Abdomen Description: Positive: Nontender, No Organomegaly, Soft. Negative: CVA Tenderness (R), CVA Tenderness (L) Bowel Sounds: Positive: Present Musculoskeletal Exam: Normal Musculoskeletal: Positive: Strength Intact, ROM Intact, No Edema Neurological Exam: Normal Psychological Exam: Normal Skin Exam: Normal Triage Information Reviewed: Yes Vital Signs: Initial Vital Signs Temp 97.7 F 06/07/17 14:29 Pulse 76 06/07/17 14:29 Resp 16 06/07/17 14:29 BP 138/89 06/07/17 14:29 Pulse Ox 97 06/07/17 14:29 Diagnostic Evaluation - Laboratory O2 Sat by Pulse Oximetry: 97 Respiratory Course/Dx - Differential Dx/Diagnosis Differential Diagnosis/HQI/PQRI: Asthma, Bronchitis, Influenza, Lower Resp Infection, Sinusitis, Other - pneumonia Provider Diagnoses: 1- Acute asthma exacerbation due to bronchitis Discharge - Discharge Plan Condition: Stable Disposition: HOME Prescriptions: Albuterol HFA INHALER* [Ventolin HFA Inhaler*] 2 puff INH Q6H PRN #1 mdi MDD 4 PRN Reason: Sob/Wheezing Albuterol/Ipratropium NEB.VERENA* [Duoneb (Albuterol 2.5 MG/Ipratropium 0.5 MG)] 1 neb INH Q6H PRN #1 maury PRN Reason: Wheezing Azithromyxin MAURY (NF) [Z-Maury (Zithromax) 250 mg tabs #6] 2 tab PO .TODAY, THEN 1 DAILY #6 tab Budesonide/Formote 160/4.5(NF) [Symbicort 160/4.5 (NF)] 1 puff INH BID #1 mdi predniSONE TAB* [Deltasone TAB*] 20 mg PO DAILY #8 tab Patient Education Materials: Asthma (ED), Acute Bronchitis (ED) Referrals: Queta Dasilva MD [Primary Care Provider] - 3 Days Additional Instructions: 1-Please take full course of antibiotic to avoid resistance. 2-Take Prednisone PO as directed continue using the albuterol inhaler prns. Do the nebulizer Treatments at home as directed, specially at night time. 3- If symptoms do not improve or worsen or your develop SOB with fever and severe wheezing please go immediately to the ER further evaluation and treatment. 4- F/u with your PCP in 2-3 days for further management on your Asthma - Billing Disposition and Condition Condition: STABLE Disposition: HOME
[2017-06-07] MEDS ORDERED: predniSONE TAB* 20 MG PO ONE (15:14)
[2017-06-07] MEDS ORDERED: Albuterol/Ipratropium NEB.SOL* Albuterol 2.5 MG/Ipratropium 0.5 MG 3 ML INH ONE (15:14)
== END 2017-06-07 16:01 | disposition home or self-care (01) ==
LOC: UCEAST 14:20
DX: J45.901 Unspecified asthma with (acute) exacerbation (principal); Z88.6 Allergy status to analgesic agent; Z88.0 Allergy status to penicillin; Z87.891 Personal history of nicotine dependence
CPT/HCPCS: 99202; A9270-GY; G0463; J7512

== ENCOUNTER 2018-02-11 10:29 | Emergency (ER) | payer OTHER ==
[2018-02-11 10:44] VITALS: BP 141/84
--- NOTE | 2018-02-11 10:44 | UC ---
Respiratory Complaint HPI - HPI Summary HPI Summary: 52 yo female presents with fatigue and body aches for the last 4 days. 2 days ago she developed a productive cough with yellow mucus. Yesterday her phlegm was brown in color. She does have a hx of asthma and has albuterol and symbicort as well as a nebulizer at home. She has been using all of these with mild relief initially. Has not been taking anything OTC. Has felt warm/feverish at times, but has not taken her temperature. She mentions that she was at the hospital recently visiting her friend who was dx'd with PNA. Does feel SOB at times. Denies sinus symptoms, sore throat, chest pain, abdominal pain, n/v. She does not smoke currently - History of Current Complaint Stated Complaint: CHEST CONGESTION Time Seen by Provider: 02/11/18 10:43 Hx Obtained From: Patient Hx Last Menstrual Period: Never had a period Onset/Duration: Gradual Onset Pain Intensity: 0 Character: Cough: Productive - Allergies/Home Medications Allergies/Adverse Reactions: Allergies Allergy/AdvReac Type Severity Reaction Status Date / Time aspirin Allergy Shortness Verified 02/11/18 10:44 of Breath Penicillins Allergy Shortness Verified 02/11/18 10:44 of Breath PMH/Surg Hx/FS Hx/Imm Hx Cardiovascular History: Hypertension Respiratory History: Asthma - Surgical History Surgical History: Yes Surgery Procedure, Year, and Place: hysterectomy - Family History Known Family History: Positive: Cardiac Disease, Hypertension, Diabetes Family History: COPD - Social History Lives: With Family Alcohol Use: None Substance Use Type: None Smoking Status (MU): Former Smoker Type: Cigarettes Amount Used/How Often: 2 PPD Length of Time of Smoking/Using Tobacco: 8-10 years Have You Smoked in the Last Year: No When Did the Patient Quit Smoking/Using Tobacco: 20 years ago Household Exposure Type: Cigarettes - Immunization History Most Recent Influenza Vaccination: 2015/2015 season Most Recent Tetanus Shot: unk Most Recent Pneumonia Vaccination: this year Review of Systems All Other Systems Reviewed And Are Negative: Yes Constitutional: Positive: Fever, Fatigue, Other - Body aches Skin: Positive: Negative Eyes: Positive: Negative ENT: Positive: Negative Respiratory: Positive: Shortness Of Breath, Cough Cardiovascular: Positive: Negative Gastrointestinal: Positive: Negative Neurovascular: Positive: Negative Neurological: Positive: Negative Psychological: Positive: Negative Physical Exam - Summary Physical Exam Summary: GENERAL: NAD. WDWN. No pain distress. SKIN: No rashes, sores, lesions, or open wounds. HEENT: Head: AT/NC Eyes: Conjunctiva clear without inflammation or discharge. Ears: Hearing grossly normal. TMs intact, no bulging, erythema, or edema. Nose: Nasal mucosa pink and moist. NTTP maxillary and frontal sinus. Throat: Posterior oropharynx without exudates, erythema, or tonsillar enlargement. Uvula midline. NECK: Supple. Nontender. No lymphadenopathy. CHEST: Decreased breath sounds LLL. No r/r/w. No accessory muscle use. Breathing comfortably and in no distress. CV: RRR. Without m/r/g. Pulses intact. Cap refill <2seconds NEURO: Alert. PSYCH: Age appropriate behavior. Triage Information Reviewed: Yes Vital Signs: Initial Vital Signs Temp 100.6 F 02/11/18 10:39 Pulse 110 02/11/18 10:39 Resp 16 02/11/18 10:39 BP 141/84 02/11/18 10:39 Pulse Ox 95 02/11/18 10:39 Vital Signs Reviewed: Yes Diagnostic Evaluation - Laboratory O2 Sat by Pulse Oximetry: 95 Respiratory Course/Dx - Course Course Of Treatment: CXR: IMPRESSION: Findings consistent with left lower lobe pneumonia. Duoneb: Pt reports improved breathing and easier to get a deep breath. Given her recent exposure to PNA in a hospital setting, will treat with Levaquin. Advised to f/u in 1 week with PCP for recheck and to insure improvement of her condition. - Differential Dx/Diagnosis Provider Diagnosis: LLL pneumonia Discharge - Sign-Out/Discharge Documenting (check all that apply): Patient Departure All imaging exams completed and their final reports reviewed: Yes - Discharge Plan Condition: Stable Disposition: HOME Prescriptions: Albuterol 2.5MG/3ML (0.083%)* [Ventolin 2.5 MG/3 ML NEB.VERENA*] 2.5 mg INH Q6HR PRN #1 box PRN Reason: wheezing, SOB Levofloxacin TAB* [Levaquin TAB*] 750 mg PO DAILY #5 tab Patient Education Materials: Community Acquired Pneumonia (ED) Referrals: Queta Dasilva MD [Primary Care Provider] - Additional Instructions: If you develop a fever, shortness of breath, chest pain, new or worsening symptoms - please call your PCP or go to the ED. Your blood pressure was high at todays visit. Please see your primary provider within 4 weeks for recheck and re-evaluation. 1) Continue using your inhalers and at home nebulizer treatments 2) Please schedule a follow up appointment with your primary doctor for a recheck in 1 week - Billing Disposition and Condition Condition: STABLE Disposition: Home - Attestation Statements Provider Attestation: Per institutional requirements, I have reviewed the chart, however, I was not consulted specifically or made aware of this patient by the midlevel provider. I did not personally evaluate, interact with , or disposition this patient.
[2018-02-11] MEDS ORDERED: Albuterol/Ipratropium NEB.SOL* Albuterol 2.5 MG/Ipratropium 0.5 MG 3 ML INH ONE (10:51)
== END 2018-02-11 11:53 | disposition home or self-care (01) ==
LOC: UCEAST 10:29
DX: J18.9 Pneumonia, unspecified organism (principal); I10 Essential (primary) hypertension; J45.909 Unspecified asthma, uncomplicated; Z88.0 Allergy status to penicillin; Z88.6 Allergy status to analgesic agent; Z87.891 Personal history of nicotine dependence
CPT/HCPCS: 71046; 99212; A9270-GY; G0463